=== PATIENT | male | born 1945 | race Caucasian/White ===

== ENCOUNTER 2024-01-15 10:35 | Day surgery (SDC) | payer OTHER ==
[~2024-01-15] VITALS: Ht 180.3 cm; Wt 104.8 kg
[~2024-01-15 10:35] MED LIST: CEFAZOLIN SOD 1 GM in D5W 50 ML IV ONE
[2024-01-15] MEDS ORDERED: METOCLOPRAMIDE HCL 10 MG/2 ML VIAL ONE (11:25)
[2024-01-15] MEDS ORDERED: LIDOCAINE MPF 2% 20 MG/1 ML, 5 ML VIAL INH ONE (11:25)
[2024-01-15] MEDS ORDERED: PROPOFOL 200MG/ 20ML VIAL (DIPRIVAN) IV ONE (11:25)
[2024-01-15] MEDS ORDERED: SEVOFLURANE 15 MIN GAS INH ONE (11:25)
[2024-01-15] MEDS ORDERED: NS IRRIG SOLN 1000 ML IR ONE (11:25)
[2024-01-15] MEDS ORDERED: WATER FOR IRRIGATION,STERILE 1,000 ML IRRIG.SOLN IR ONE (11:25)
[2024-01-15] MEDS ORDERED: ceFAZolin SODIUM 2 GM VIAL ONE (11:25)
[2024-01-15] MEDS ORDERED: TRANEXAMIC ACID 1,000 MG/10 ML VIAL ONE (11:25)
[2024-01-15] MEDS ORDERED: LR 1,000 ML IV.SOLN IV ONE (11:25)
[2024-01-15] MEDS ORDERED: ONDANSETRON HCL 4 MG/2 ML VIAL ONE (11:25)
[2024-01-15] MEDS ORDERED: ROCURONIUM BROMIDE 10 MG/ML (ZEMURON) ONE (11:25)
[2024-01-15] MEDS ORDERED: BUPIVACAINE /PF 0.25% 30 ML VIAL INJ ONE (11:25)
[2024-01-15] MEDS ORDERED: fentaNYL CITRATE/PF 100 MCG/2 ML AMP ONE (11:29)
[2024-01-15] MEDS ORDERED: MIDAZOLAM HCL 2 MG/2 ML VIAL (VERSED) ONE (11:29)
[2024-01-15] MEDS ORDERED: ONDANSETRON 4 MG ODT TAB PO PRN (12:00)
[2024-01-15] MEDS ORDERED: MORPHINE 4 MG INJ. 4 MG/ML VIAL IVP PRN (12:00)
[2024-01-15] MEDS ORDERED: ONDANSETRON HCL 4 MG/2 ML VIAL IVP PRN (14:30)
[2024-01-15] MEDS ORDERED: METOCLOPRAMIDE HCL 10 MG/2 ML VIAL IVP PRN (14:30)
[2024-01-15] MEDS ORDERED: LABETALOL 100 MG/ 20ML VIAL IVP PRN (14:30)
[2024-01-15] MEDS ORDERED: ePHEDrine sulfate 50 MG/ML VIAL IVP PRN (14:30)
[2024-01-15] MEDS ORDERED: HYDROmorphone 1 MG/ML INJ. CARTRIDGE IVP PRN ×3 (14:30)
[2024-01-15] MEDS ORDERED: APIX5TAB PO (15:54)
[2024-01-15] MEDS ORDERED: METO50TA7 PO (15:54)
[2024-01-15] MEDS ORDERED: SIMV-341 PO (15:54)
[2024-01-15] MEDS ORDERED: EMPA10TA PO (15:54)
[2024-01-15] MEDS ORDERED: TIRZ10PE (15:54)
[2024-01-15] MEDS ORDERED: CYM30 PO (15:54)
[2024-01-15] MEDS: IPRATROPIUM/ALBUTEROL SULFATE 3 ML AMPUL.NEB (DUONEB) ONE (16:20)
[2024-01-15 16:21] VITALS: O2SAT 95
[2024-01-15] MEDS: IPRATROPIUM/ALBUTEROL SULFATE 3 ML AMPUL.NEB (DUONEB) INH ONE (17:24)
[2024-01-15 18:36] VITALS: BP_SYST 120; PULSE 97; RESP 16; O2SAT 96
[2024-01-15 20:00] VITALS: BP_SYST 161; PULSE 74; RESP 20; TEMP 97.9; O2SAT 92
[2024-01-16] VITALS: BP_SYST 143; PULSE 89; RESP 18; TEMP 97; O2SAT 92
[2024-01-16] MEDS: OXYCODONE/ACETAMINOPHEN *10*mg/325 mg TABLET PO PRN (00:53)
[2024-01-16 07:30] VITALS: O2SAT 98
[2024-01-16] MEDS: METOPROLOL SUCCINATE 50 MG TAB.SR.24H (TOPROL XL) PO ONE (09:59)
[2024-01-16 10:32] VITALS: BP_SYST 129; PULSE 90; RESP 16; TEMP 97; O2SAT 94
== END 2024-01-16 11:05 | disposition home or self-care (01) ==
LOC: SDS 10:35 → SMU 10:36 → STU 18:11 → SMU 18:12 → SDS 01-16 11:05
PROVIDERS: ATTEND Orthopaedic Surgery
DX: M75.102 Unspecified rotator cuff tear or rupture of left shoulder, not specified as traumatic (principal); M75.22 Bicipital tendinitis, left shoulder; S43.432A Superior glenoid labrum lesion of left shoulder, initial encounter; M25.512 Pain in left shoulder; M25.812 Other specified joint disorders, left shoulder; G47.33 Obstructive sleep apnea (adult) (pediatric); I12.9 Hypertensive chronic kidney disease with stage 1 through stage 4 chronic kidney disease, or unspecified chronic kidney disease; E11.22 Type 2 diabetes mellitus with diabetic chronic kidney disease; N18.31 Chronic kidney disease, stage 3a; G47.34 Idiopathic sleep related nonobstructive alveolar hypoventilation; E66.01 Morbid (severe) obesity due to excess calories; Z68.32 Body mass index [BMI] 32.0-32.9, adult; Z96.643 Presence of artificial hip joint, bilateral; Z98.890 Other specified postprocedural states; Z87.891 Personal history of nicotine dependence; Z79.899 Other long term (current) drug therapy; X58.XXXA Exposure to other specified factors, initial encounter; Y93.89 Activity, other specified; Y92.89 Other specified places as the place of occurrence of the external cause; Y99.8 Other external cause status
CPT/HCPCS: 87081; 71045; 94640; 82948; 88304; 23430; 29827; 64415; 97162; J3490 ×2; J0690; J2765; J3465; J2405; J2704; J3010; J7060; J7120; C1713 ×2; 88305; G0378